=== PATIENT | male | born 1955 | race American Indian/Alaskan Native ===

== ENCOUNTER 2025-01-01 17:04 | Emergency (ER) | payer OTHER ==
[~2025-01-01] VITALS: Ht 175.3 cm; Wt 90.7 kg
[2025-01-01] MEDS ORDERED: LIDOCAINE HCL 1% 10ML VIAL ONE (17:45)
[2025-01-01] MEDS ORDERED: DIPHTH,PERTUSS(ACELL),TET VAC 0.5 ML SYRINGE IM ONE ×2 (18:39→18:45)
[2025-01-01] MEDS ORDERED: CEFTRIAXONE SODIUM 1,000 MG VIAL ONE (18:39)
[2025-01-01] MEDS ORDERED: CEFTRIAXONE SODIUM 1,000 MG VIAL IM ONE (18:45)
[2025-01-01] MEDS ORDERED: DUI500 PO (18:56)
[2025-01-01] MEDS ORDERED: KETO10TA2 PO (18:56)
== END 2025-01-01 19:00 | disposition home or self-care (01) ==
LOC: ER 17:04
DX: S91.312A Laceration without foreign body, left foot, initial encounter (principal); W45.8XXA Other foreign body or object entering through skin, initial encounter; Y93.89 Activity, other specified; Y92.89 Other specified places as the place of occurrence of the external cause; Y99.9 Unspecified external cause status

== ENCOUNTER 2025-01-10 19:21 | Inpatient (IN) | payer OTHER ==
[~2025-01-10] VITALS: Ht 175.3 cm; Wt 90.7 kg
[~2025-01-10 19:21] MED LIST: DUI500 PO; KETO10TA2 PO
--- NOTE | 2025-01-10 19:59 | NUR ---
PTE ALERTA Y ORIENTADO X3. REFIERE QUE SE CORTO EN PIE NOAM EL 7 DE BAKER Y LE TOMARON PUNTOS EN EL MISMO. REFIERE QUE EL MIERCOLES LE RECETARON LEVAQUIN EN JASMEET VISITAS CON LAUREN GRAYIZ Y QUE LA MISMA LE OCASIONO HOY RASH EN LA ESPALDA. PTE REFIERE NECROTIZACION EN AREA AFECTADA DEL PIES Y CELLULITIS ALREDEDOR DE LA MISMA. SE OBSERVA INFLAMACION.
[2025-01-10] MEDS ORDERED: METHYLPREDNISOLONE SOD SUCC 125 MG VIAL IV ONE (21:45)
[2025-01-10] MEDS ORDERED: DIPHENHYDRAMINE HCL 50 MG/ML VIAL 1ML IV ONE (21:45)
[2025-01-10] MEDS ORDERED: VANCOMYCIN HCL 1,000 MG VIAL IV ONE (21:45)
[2025-01-10 22:08] LABS: BASO % 0.3 % (0.1-1.2); EOS # 0.12 (0.04-0.54); HEMATOCRIT 47.6 % (40.1-51.0); HEMOGLOBIN 15.8 g/dL (13.7-17.5); LYMPH # 1.51 (1.18-3.74); LYMPH % 12.4 % (19.3-53.1); MEAN CORPUSCULAR HEMOGLOBIN 28.4 pg (25.6-32.2); MONO # 0.69 (0.24-0.82); MONO % 5.7 % (4.7-12.5); NEUT # 9.69 (1.56-6.13); NEUT % 79.9 % (34.0-71.1); PLATELET COUNT 415 K/uL (163-369); RED BLOOD COUNT 5.57 M/uL (4.63-6.08); RED CELL DISTRIBUTION WIDTH 13.1 % (11.6-14.4)
--- NOTE | 2025-01-10 22:14 | NUR ---
PINO BURKETTS EJECUTA ORDENES MEDICAS EN BURTON TOTALIDAD.
[2025-01-10 22:25] LABS: INR 1.02; PARTIAL THROMBOPLASTIN TIME 27.6 SECONDS (22.0-34.0); PROTHROMBIN TIME 11.1 SECONDS (9.0-11.5)
[2025-01-10 22:30] LABS: ALBUMIN 3.9 gm/dL (3.4-5.0); BILIRUBIN TOTAL 0.27 mg/dL (0.3-1.2); CALCIUM 9.3 mg/dL (8.5-10.1); GFR 73.87; GLOBULINA 4.2 G/DL (2.4-3.5); POTASSIUM 4.1 mEq/L (3.5-5.1); TOTAL PROTEIN 8.1 gm/dL (6.4-8.2)
[2025-01-10] MEDS ORDERED: TETRACAINE HCL 20 DR/ML DROPS OP SCH (23:45)
[2025-01-10] MEDS ORDERED: 0.9 % SODIUM CHLORIDE 1,000 ML IV ONE (23:45)
--- NOTE | 2025-01-11 07:50 | NUR ---
MASCULINO ALERTA Y ORIENTADO X3 EN MAREN POSICION MAS BAJA Y BARANDAS ELEVADAS POR SEGURIDAD. CANALIZACION PATENTE CON IVF'S KELY ORDEN MEDICA. PENDIENTE CONSULTA CON DR LAUREN YOON.
[2025-01-11] MEDS ORDERED: CEFTRIAXONE SODIUM 2,000 MG in DEXTROSE 5 % IN WATER 100 ML IV SCH (11:08)
[2025-01-11] MEDS ORDERED: LINEZOLID IN DEXTROSE 5% 300 ML IV SCH (11:08)
[2025-01-11] MEDS ORDERED: METRONIDAZOLE/SODIUM CHLORIDE 100 ML IV SCH (11:09)
[2025-01-11] MEDS ORDERED: NIFEDIPINE 30 MG TAB.SA.OSM PO SCH (11:09)
[2025-01-11] MEDS ORDERED: ENOXAPARIN SODIUM 40 MG/0.4 ML SYRINGE SUBCUTANEO SCH (11:10)
[2025-01-11] MEDS ORDERED: FAMOTIDINE/PF 20 MG/2 ML VIAL IV SCH (11:10)
[2025-01-11] MEDS ORDERED: RINGERS SOLUTION,LACTATED 1,000 ML IV SCH (11:15)
[2025-01-11] MEDS ORDERED: ENALAPRILAT DIHYDRATE 1.25 MG/ML VIAL IV PRN (11:15)
[2025-01-11 13:48] LABS: PH,URINE 6.5 (5.0-8.0); URINE APPEARANCE Clear; URINE BILIRRUBIN Negative (NEGATIVE); URINE BLOOD Negative; URINE COLOR Yellow; URINE KETONE Negative (NEGATIVE); URINE LEUKOCYTE Negative; URINE NITRATE Negative; URINE PROTEIN Negative (NEGATIVE); URINE UROBILINOGEN 0.2 E.U./dl
[2025-01-11 13:52] LABS: URINE BACTERIA 47.6 uL (0.0-1933); URINE EPITHELIAL CELLS 2.3 uL (0.0-38.8); URINE RBC 7.8 uL (0.0-20.8)
[2025-01-11 13:53] LABS: URINE GLUCOSE 500 MG/DL (NEGATIVE); URINE WBC 1.2 uL (0.0-23.2)
[2025-01-11 14:05] LABS: COVID-19 AG NEGATIVE (NEGATIVE)
[2025-01-11 14:10] LABS: INFLUENZA A AG NEGATIVE (NEGATIVE)
[2025-01-11] MEDS ORDERED: NIFEDIPINE 30 MG TAB.SA.OSM PO STA (16:00)
[2025-01-11 17:04] VITALS: BP 143/75
[2025-01-12 02:19] VITALS: BP 111/69; O2SAT 95
[2025-01-12 07:28] LABS: CHOL HDL RATIO 3.9 (0-5.0)
[2025-01-12 07:38] LABS: BASO % 0.7 % (0.1-1.2); BILIRUBIN TOTAL 0.3 mg/dL (0.3-1.2); CALCIUM 8.1 mg/dL (8.5-10.1); CREATININE SERUM 0.95 mg/dL (0.70-1.30); EOS # 0.26 (0.04-0.54); EOS % 2.3 % (0.7-7.0); GFR 78.37; HEMOGLOBIN 13.6 g/dL (13.7-17.5); LYMPH # 2.51 (1.18-3.74); MAGNESIUM 2.3 mg/dL (1.8-2.4); MEAN CORPUSCULAR HEMOGLOBIN 29.6 pg (25.6-32.2); MONO # 0.93 (0.24-0.82); MONO % 8.2 % (4.7-12.5); NEUT # 7.58 (1.56-6.13); NEUT % 66.4 % (34.0-71.1); PHOSPHOROUS 3.3 mg/dL (2.5-4.9); PLATELET COUNT 377 K/uL (163-369); POTASSIUM 4.27 mEq/L (3.5-5.1); RED CELL DISTRIBUTION WIDTH 13.6 % (11.6-14.4); TSH 1.82 uIU/mL (0.358-3.74)
[2025-01-12] MEDS ORDERED: NIFEDIPINE 60 MG TAB.SA.OSM PO SCH (09:00)
[2025-01-12 09:01] VITALS: BP 107/63; O2SAT 93
[2025-01-12 16:32] VITALS: BP 167/80
[2025-01-12] MEDS ORDERED: ATORVASTATIN CALCIUM 20 MG TABLET PO SCH (17:00)
[2025-01-13 01:16] VITALS: BP 144/79; O2SAT 95
[2025-01-13 07:56] VITALS: BP 157/77
[2025-01-13] MEDS ORDERED: NIFEDIPINE 30 MG TAB.SA.OSM PO SCH (09:00)
[2025-01-13] MEDS ORDERED: NIFEDIPINE 30 MG TAB.SA.OSM PO STA (12:13)
[2025-01-14 00:40] VITALS: BP 121/65
[2025-01-14 05:49] LABS: HEMATOCRIT 41.1 % (40.1-51.0); HEMOGLOBIN 13.7 g/dL (13.7-17.5); RED BLOOD COUNT 4.79 M/uL (4.63-6.08)
[2025-01-14 05:50] LABS: BASO % 0.5 % (0.1-1.2); EOS # 0.36 (0.04-0.54); EOS % 3.9 % (0.7-7.0); LYMPH # 3.49 (1.18-3.74); LYMPH % 38.2 % (19.3-53.1); MEAN CORPUSCULAR HEMOGLOBIN 28.6 pg (25.6-32.2); MONO # 0.84 (0.24-0.82); MONO % 9.2 % (4.7-12.5); NEUT # 4.33 (1.56-6.13); NEUT % 47.4 % (34.0-71.1); PLATELET COUNT 364 K/uL (163-369); RED CELL DISTRIBUTION WIDTH 13.2 % (11.6-14.4)
[2025-01-14 06:51] LABS: ALBUMIN 3.1 gm/dL (3.4-5.0); BILIRUBIN TOTAL 0.35 mg/dL (0.3-1.2); CALCIUM 8.5 mg/dL (8.5-10.1); CREATININE SERUM 0.93 mg/dL (0.70-1.30); GFR 80.32; GLOBULINA 2.8 G/DL (2.4-3.5); MAGNESIUM 2.2 mg/dL (1.8-2.4); PHOSPHOROUS 3.7 mg/dL (2.5-4.9); POTASSIUM 4.57 mEq/L (3.5-5.1); TOTAL PROTEIN 5.9 gm/dL (6.4-8.2)
[2025-01-14 08:19] VITALS: BP 133/58
[2025-01-14] MEDS ORDERED: NIFEDIPINE 60 MG TAB.SA.OSM PO SCH (09:00)
[2025-01-14] MEDS ORDERED: NIFEDIPINE 30 MG TAB.SA.OSM PO SCH (09:00)
[2025-01-14 16:00] VITALS: BP 155/78; O2SAT 95
[2025-01-14] MEDS ORDERED: LINEZOLID 600 MG TABLET PO SCH (21:00)
[2025-01-14] MEDS ORDERED: FAMOtidine 20 MG TABLET PO SCH (21:00)
[2025-01-15 00:33] VITALS: BP 120/68; O2SAT 99
[2025-01-15 08:00] VITALS: BP 116/64; O2SAT 95
== END 2025-01-15 15:02 | disposition home or self-care (01) | DRG 581 ==
LOC: ER 19:48 → MEDI 01-11 11:44
PROVIDERS: General Practice; ADMIT Internal Medicine; ATTEND Internal Medicine
PROC: BQ3MYZZ Magnetic Resonance Imaging (MRI) of Left Foot using Other Contrast (ICD-10-PCS; 2025-01-11)
PROC: B54DZZZ Ultrasonography of Bilateral Lower Extremity Veins (ICD-10-PCS; 2025-01-11)
PROC: B44HZZZ Ultrasonography of Bilateral Lower Extremity Arteries (ICD-10-PCS; 2025-01-11)
PROC: 0JDR0ZZ Extraction of Left Foot Subcutaneous Tissue and Fascia, Open Approach (ICD-10-PCS; 2025-01-12)
PROC: 0JDR0ZZ Extraction of Left Foot Subcutaneous Tissue and Fascia, Open Approach (ICD-10-PCS; principal; 2025-01-13)
DX: L03.116 Cellulitis of left lower limb (principal); S91.312A Laceration without foreign body, left foot, initial encounter; L97.523 Non-pressure chronic ulcer of other part of left foot with necrosis of muscle; Y93.A1 Activity, exercise machines primarily for cardiorespiratory conditioning; Y92.9 Unspecified place or not applicable; Y99.9 Unspecified external cause status; D75.839 Thrombocytosis, unspecified; I10 Essential (primary) hypertension
CPT/HCPCS: 73723